=== PATIENT | female | born 1935 | race Caucasian/White ===

== ENCOUNTER 2019-06-15 10:52 | Inpatient (IN) | payer MEDICARE, OTHER ==
[2019-06-15] MEDS ORDERED: LORazepam 2 MG/ML SDV IVPUSH ONE (11:42)
[2019-06-15] MEDS: Sodium Chloride 0.9% 10 ML Syringe FLUSH PRN (11:48)
--- NOTE | 2019-06-15 12:14 | CT ---
[id number] CT/CT Head WO IV EXAM: CT Head WO IV CLINICAL DATA: FALL, STRUCK HEAD,HISTORY OF BRAIN METS. COMPARISON STUDY: MRI from March 2019. FINDINGS: No evidence of acute intracranial hemorrhage or extra-axial fluid collection. Abnormal signal throughout the white matter of both cerebral hemispheres. Findings are consistent with a combination of chronic small vessel disease and edema. Patient has history of numerous intracranial metastatic lesions. Of note, previously seen leftward midline shift at the septum pellucidum has resolved. There is partial effacement of the basal cisterns more prominent on the right. However no evidence of herniation at this time. MRI of the brain with contrast is recommended to evaluate the intracranial lesions as clinically warranted. IMPRESSION: No acute intracranial hemorrhage or other acute findings. Other findings are described above. Carlos Chadwick MD 06/15/19 1216 Thank you for allowing us to participate in the care of your patient.
[2019-06-15 12:26] LABS: CHLORIDE,CL 101 mmol/L (98-107); SODIUM,NA 142 mmol/L (136-145)
[2019-06-15 12:27] LABS: ANION GAP 15.6 mmol/L (10-20)
[2019-06-15] MEDS ORDERED: cefTRIAXone 1 GM Vial IVPUSH ONE (12:43)
--- NOTE | 2019-06-15 12:46 | CR ---
[id number] RAD/RAD Chest PA or AP 1V EXAM: RAD Chest PA or AP 1V INDICATION: FALL, STRUCK HEAD,HISTORY OF BRAIN METS. COMPARISON: CT from March 2019. DISCUSSION: Bibasal parenchymal opacities right greater than left. Finding is nonspecific. Differential diagnosis includes pneumonia, aspiration, or edema. If findings are clinically equivocal, consider contrast-enhanced chest CT examination for further evaluation. If there is contraindication to contrast material, noncontrast chest CT would also be of benefit. IMPRESSION: As above. Carlos Chadwick MD 06/15/19 [id number] Thank you for allowing us to participate in the care of your patient.
[2019-06-15] MEDS ORDERED: LORazepam 2 MG/ML SDV IVPUSH PRN (12:47)
[2019-06-15] MEDS ORDERED: levETIRAcetam 500 MG in Sodium Chloride 0.9% 100 ML IV ONE ×2 (12:56→14:14)
[2019-06-15] MEDS ORDERED: Dexamethasone 4 MG/ML 5 ML MDV IVPUSH ONE (13:01)
--- NOTE | 2019-06-15 13:03 | EDM.PDOC ---
ED HPI GENERAL MEDICAL PROBLEM - General Chief Complaint: General Stated Complaint: FALL Time Seen by Provider: 06/15/19 10:52 Source of Information: Reports: EMS, Family History Limitations: Reports: No Limitations - History of Present Illness INITIAL COMMENTS - FREE TEXT/NARRATIVE: Pt. presents to ER via EMS. 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 The son states that the patient has been confused, incontinent, and unable to perform her ADLs. She has also been experiencing "shaking" of her upper and lower extremities as well according to EMS. She has been increasingly weak. Son states that the patient fell today, striking the R parietal portion of her head on a piece of furniture. There was no LOC at that time. Son did not accompany the patient to ER so information gathering has been difficult. Pt. is non-verbal on arrival and unable to answer questions. Onset: Today Onset Date: 06/15/19 Location: Reports: Head, Generalized - Related Data Allergies Allergy/AdvReac Type Severity Reaction Status Date / Time Penicillins Allergy Other Verified 06/15/19 12:42 Home Meds: Home Meds Acetaminophen 325 mg PO Q4HR PRN 06/15/19 [History] Aspirin [Halfprin] 81 mg PO DAILY 06/15/19 [History] Famotidine 20 mg PO BEDTIME 06/15/19 [History] Memantine HCl [Namenda] 10 mg PO BID 06/15/19 [History] Simvastatin [Zocor] 10 mg PO BEDTIME 06/15/19 [History] amLODIPine [Norvasc] 2.5 mg PO DAILY 06/15/19 [History] dexAMETHasone [Dexamethasone] 4 mg PO BID 06/15/19 [History] levETIRAcetam [Keppra] 750 mg PO BID 06/15/19 [History] Past Medical History HEENT History: Reports: Cataract Cardiovascular History: Reports: High Cholesterol, Hypertension, Syncope Neurological History: Reports: Other (See Below) Other Neuro History: Brain edema Oncologic (Cancer) History: Reports: Basal Cell Carcinoma, Brain, Lung - Past Surgical History HEENT Surgical History: Reports: Cataract Surgery Female Surgical History: Reports: Hysterectomy Social & Family History - Tobacco Use Smoking Status *Q: Current Status Unknown ED ROS GENERAL - Review of Systems Review Of Systems: Unable To Obtain Reason Not Obtained: decreased LOC. See HPI ED EXAM, GENERAL - Physical Exam Exam: See Below Exam Limited By: No Limitations General Appearance: Alert, Obtunded Eye Exam: Bilateral Eye: EOMI, PERRL Nose: Normal Inspection, Normal Mucosa, No Blood Throat/Mouth: Normal Inspection, Normal Lips, Normal Teeth, Normal Gums, Normal Oropharynx, Normal Voice, No Airway Compromise Head: Other (small hematoma to R parietal area) Neck: Normal Inspection, Supple, Non-Tender, Full Range of Motion Respiratory/Chest: No Respiratory Distress, Lungs Clear, Normal Breath Sounds, No Accessory Muscle Use, Chest Non-Tender Cardiovascular: Normal Peripheral Pulses, Regular Rate, Rhythm, No Edema, No Gallop, No JVD, No Murmur, No Rub Peripheral Pulses: 4+: Radial (L) GI/Abdominal: Soft, Non-Tender, No Organomegaly, No Distention, No Abnormal Bruit, No Mass, Pelvis Stable (Female) Exam: Deferred Rectal (Female) Exam: Deferred Back Exam: Normal Inspection, Full Range of Motion Extremities: Normal Inspection, Normal Range of Motion, Non-Tender, No Pedal Edema, Normal Capillary Refill Neurological: Alert, Oriented, CN II-XII Intact, Normal Cognition, Normal Gait, Normal Reflexes, No Motor/Sensory Deficits Psychiatric: Normal Affect, Normal Mood Skin Exam: Warm, Dry, Intact, Normal Color, No Rash Lymphatic: No Adenopathy EKG INTERPRETATION Rhythm: NSR [place]: Normal P-Wave: Present QRS: Normal ST-T: Normal QT: Normal Course - Vital Signs Last Recorded V/S: Last Vital Signs Temp 37.7 C 06/15/19 13:12 Pulse 103 H 06/15/19 13:12 Resp 24 H 06/15/19 13:12 BP 171/79 H 06/15/19 13:12 Pulse Ox 90 L 06/15/19 13:12 - Orders/Labs/Meds Orders: Active Orders 24 hr Category Date Time Status EKG Documentation Completion [RC] STAT Care 06/15/19 11:18 Active CULTURE BLOOD [BC] Stat Lab 06/15/19 11:07 Received CULTURE BLOOD [BC] Stat Lab 06/15/19 11:52 Received Sodium Chloride 0.9% [Saline Flush] Med 06/15/19 11:17 Active 10 ml FLUSH ASDIRECTED PRN Blood Culture x2 Reflex Set [OM.PC] Stat Oth 06/15/19 11:18 Ordered Peripheral IV Insertion Adult [OM.PC] Routine Oth 06/15/19 11:18 Ordered Medication Orders Lorazepam (Ativan) 0.5 mg IVPUSH Q4H PRN PRN Reason: Anxiety Sodium Chloride (Saline Flush) 10 ml FLUSH ASDIRECTED PRN PRN Reason: Keep Vein Open Last Admin: 06/15/19 11:48 Dose: 10 ml Labs: Laboratory Tests 06/15/19 06/15/19 06/15/19 Range/Units 11:07 11:07 11:07 WBC 10.9 H (4.0-10.0) x10^3/uL RBC 3.76 L (4.00-5.50) x10^6/uL Hgb 12.4 (12.0-16.0) g/dL Hct 36.5 (33.0-47.0) % MCV 97.1 H (78.0-93.0) fL MCH 33.0 H (26.0-32.0) pg MCHC 34.0 (32.0-36.0) g/dL RDW Coeff of [place] 14.6 (10.0-15.0) % Plt Count 156 (130-400) x10^3/uL Add Manual Diff Yes Neutrophils % (Manual) 54 (50-80) % Band Neutrophils % 14 H (0-6) % Lymphocytes % (Manual) 23 L (25-50) % Monocytes % (Manual) 7 (2-11) % Eosinophils % (Manual) 2 (0-4) % Platelet Estimate Adequate PT 11.6 (10.0-12.8) SEC INR 1.0 L (2.0-3.5) Sodium 142 (136-145) mmol/L Potassium 3.6 (3.5-5.1) mmol/L Chloride 101 (98-107) mmol/L Carbon Dioxide 29 (21-32) mmol/L Anion Gap 15.6 (10-20) mmol/L BUN 22 H (7-18) mg/dL Creatinine 0.7 (0.55-1.02) mg/dL Est Cr Clr Drug Dosing TNP Estimated GFR (MDRD) > 60 Glucose 161 H (74-106) mg/dL Lactic Acid (0.4-2.0) mmol/L Calcium 8.8 (8.5-10.1) mg/dL Corrected Calcium 9.76 (8.5-10.1) mg/dL Phosphorus 2.9 (2.6-4.7) mg/dL Magnesium 2.0 (1.8-2.4) mg/dL Total Bilirubin 1.5 H (0.2-1.0) mg/dL AST 12 L (15-37) U/L ALT 11 L (14-59) U/L Alkaline Phosphatase 85 (46-116) U/L Troponin I < 0.017 (<=0.056) ng/mL C-Reactive Protein 2.5 H (<=0.9) mg/dL Total Protein 5.7 L (6.4-8.2) g/dL Albumin 2.8 L (3.4-5.0) g/dL Globulin 2.9 Albumin/Globulin Ratio 0.97 TSH, Ultra Sensitive 0.654 (0.358-3.74) uIU/mL Urine Color (YELLOW) Urine Appearance (CLEAR) Urine pH (5.0-8.0) Ur Specific [place] Urine Protein (NEGATIVE) mg/dL Urine Glucose (UA) (NEGATIVE) mg/dL Urine Ketones (NEGATIVE) mg/dL Urine Occult Blood (NEGATIVE) Urine Nitrite (NEGATIVE) Urine Bilirubin (NEGATIVE) Urine Urobilinogen (0.2) EU/dL Ur Leukocyte Esterase (NEGATIVE) Urine RBC (NOT SEEN) /HPF Urine WBC (NOT SEEN) /HPF Ur Squamous Epith Cells (NEGATIVE) /HPF Amorphous Sediment Urine Bacteria (NEGATIVE) /HPF Urine Mucus (NEGATIVE) /LPF 06/15/19 06/15/19 Range/Units 11:07 12:12 WBC (4.0-10.0) x10^3/uL RBC (4.00-5.50) x10^6/uL Hgb (12.0-16.0) g/dL Hct (33.0-47.0) % MCV (78.0-93.0) fL MCH (26.0-32.0) pg MCHC (32.0-36.0) g/dL RDW Coeff of [place] (10.0-15.0) % Plt Count (130-400) x10^3/uL Add Manual Diff Neutrophils % (Manual) (50-80) % Band Neutrophils % (0-6) % Lymphocytes % (Manual) (25-50) % Monocytes % (Manual) (2-11) % Eosinophils % (Manual) (0-4) % Platelet Estimate PT (10.0-12.8) SEC INR (2.0-3.5) Sodium (136-145) mmol/L Potassium (3.5-5.1) mmol/L Chloride (98-107) mmol/L Carbon Dioxide (21-32) mmol/L Anion Gap (10-20) mmol/L BUN (7-18) mg/dL Creatinine (0.55-1.02) mg/dL Est Cr Clr Drug Dosing Estimated GFR (MDRD) Glucose (74-106) mg/dL Lactic Acid 2.3 H* (0.4-2.0) mmol/L Calcium (8.5-10.1) mg/dL Corrected Calcium (8.5-10.1) mg/dL Phosphorus (2.6-4.7) mg/dL Magnesium (1.8-2.4) mg/dL Total Bilirubin (0.2-1.0) mg/dL AST (15-37) U/L ALT (14-59) U/L Alkaline Phosphatase (46-116) U/L Troponin I (<=0.056) ng/mL C-Reactive Protein (<=0.9) mg/dL Total Protein (6.4-8.2) g/dL Albumin (3.4-5.0) g/dL Globulin Albumin/Globulin Ratio TSH, Ultra Sensitive (0.358-3.74) uIU/mL Urine Color Yellow (YELLOW) Urine Appearance Slightly cloudy H (CLEAR) Urine pH 5.5 (5.0-8.0) Ur Specific [place] >=1.030 Urine Protein 30 H (NEGATIVE) mg/dL Urine Glucose (UA) 100 H (NEGATIVE) mg/dL Urine Ketones 40 H (NEGATIVE) mg/dL Urine Occult Blood Negative (NEGATIVE) Urine Nitrite Negative (NEGATIVE) Urine Bilirubin Small H (NEGATIVE) Urine Urobilinogen 1.0 (0.2) EU/dL Ur Leukocyte Esterase Negative (NEGATIVE) Urine RBC 0-5 (NOT SEEN) /HPF Urine WBC 0-5 (NOT SEEN) /HPF Ur Squamous Epith Cells Few H (NEGATIVE) /HPF Amorphous Sediment Occasional Urine Bacteria Rare (NEGATIVE) /HPF Urine Mucus Few H (NEGATIVE) /LPF Meds: Medications Generic Name Dose Route Start Last Admin Trade Name Judi PRN Reason Stop Dose Admin Lorazepam 0.5 mg 06/15/19 12:47 Ativan IVPUSH Q4H PRN Anxiety Sodium Chloride 10 ml 06/15/19 11:17 06/15/19 11:48 Saline Flush FLUSH 10 ml ASDIRECTED PRN Administration Keep Vein Open Discontinued Medications Generic Name Dose Route Start Last Admin Trade Name Judi PRN Reason Stop Dose Admin Ceftriaxone Sodium 1 gm 06/15/19 12:43 06/15/19 12:50 Rocephin IVPUSH 06/15/19 12:44 1 gm STAT ONE Administration Dexamethasone 12 mg 06/15/19 13:01 Dexamethasone IVPUSH 06/15/19 13:02 ONETIME ONE Levetiracetam 500 mg/ Sodium 105 mls @ 400 mls/hr 06/15/19 12:56 Chloride IV 06/15/19 13:10 ONETIME ONE Lorazepam 1 mg 06/15/19 11:42 06/15/19 11:47 Ativan IVPUSH 06/15/19 11:43 1 mg STAT ONE Administration - Radiology Interpretation Free Text/Narrative:: CT brain negative for acute pathology. Diffuse small vessel disease/mets noted. Unchanged. Departure - Departure Time of Disposition: 13:00 Disposition: Admitted As Inpatient 66 Clinical Impression: Seizure, Metastatic cancer to lung - Discharge Information Sepsis Event Note - Evaluation Sepsis Screening Result: No Definite Risk - Focused Exam Vital Signs: Vital Signs Temp Pulse Resp BP Pulse Ox 06/15/19 11:41 108 H 24 H 123/85 98 06/15/19 10:52 38.0 C 100 22 H 159/84 H 92 L Date Exam was Performed: 06/15/19 Time Exam was Performed: 13:16 - Problem List Review Problem List Initiated/Reviewed/Updated: Yes - My Orders Last 24 Hours: My Active Orders 06/15/19 11:07 CULTURE BLOOD [BC] Stat 06/15/19 11:17 Sodium Chloride 0.9% [Saline Flush] 10 ml FLUSH ASDIRECTED PRN 06/15/19 11:18 EKG Documentation Completion [RC] STAT Blood Culture x2 Reflex Set [OM.PC] Stat Peripheral IV Insertion Adult [OM.PC] Routine 06/15/19 11:52 CULTURE BLOOD [BC] Stat - Assessment/Plan Last 24 Hours: My Active Orders 06/15/19 11:07 CULTURE BLOOD [BC] Stat 06/15/19 11:17 Sodium Chloride 0.9% [Saline Flush] 10 ml FLUSH ASDIRECTED PRN 06/15/19 11:18 EKG Documentation Completion [RC] STAT Blood Culture x2 Reflex Set [OM.PC] Stat Peripheral IV Insertion Adult [OM.PC] Routine 06/15/19 11:52 CULTURE BLOOD [BC] Stat Plan: Pt. did have several grand mal seizures during her care in ER. She was given ativan 1mg IV. Pt. was hypoventilating and postictal. I spoke with her son about her condition. He was unaware of the severity of her disease and has decided to go with DNR/DNI. Her son will be coming to the ER later today. Her chest x-ray did show some possible infiltrate so the patient was given rocephin 1 gm IV.
[2019-06-15] MEDS: Sodium Chloride 0.9% 1,000 ML IV SCH (13:41)
[2019-06-15] MEDS ORDERED: Morphine 2 MG/ML Syringe IVPUSH PRN (13:55)
[2019-06-15] MEDS ORDERED: Dexamethasone 4 MG/ML SDV ONE (13:57)
[2019-06-15] MEDS ORDERED: Metoprolol Tartrate 5 MG/5 ML SDV IVPUSH PRN (14:21)
--- NOTE | 2019-06-15 14:56 | HP ---
CHIEF COMPLAINT: Fall and head injury. HISTORY OF PRESENT ILLNESS: This is an 83-year-old female with known stage IV metastatic non-small cell lung cancer diagnosed a couple of months ago, treated with palliative radiation, who has been more confused for the past couple of days. Son talked to her on the phone on Monday. She was doing fine. He arrived and she was getting mixed up. He never saw her take any pills. She was sleeping more. Today, she was wobbly and hallucinating and fell over and hit her head like on a cabinet. When she came to the emergency room, it was noted that she had a seizure [address] and then another one for 25 seconds. Eyes rolled back. She had sounds like tonoclonic activity. She did get 1 mg of Ativan and now she is not responsive. She was not complaining of any headaches. She is normally supposed to be on Keppra for preventing seizures. She has been on dexamethasone since she was hospitalized for the diagnosis back in March. That was weaned off according to her records may be around the . Actually, her hospital stay was on 04/22 to 04/27. They had not noted her coughing. They had not noted her having any fever or chills. Lung cancer is in the right lower lobe. X-ray done in the ER did show significant right lower lobe infiltrate and she was given 1 g of IV Rocephin. ALLERGIES: The patient otherwise has allergies to penicillin, hives. MEDICATIONS: Zocor 10 mg at bedtime; aspirin 81 mg daily; Norvasc 2.5 daily, recently decreased; Pepcid 20 mg at bedtime; Namenda, started back in April, supposed to be 2 tablets twice daily; Keppra 750 b.i.d.; and Tylenol as needed. PAST MEDICAL HISTORY: The patient per her has been quite healthy. She used to smoke. She has now this lung cancer with brain metastasis. She has had basal cell skin cancer, essential hypertension. She has had some emphysema. Hyperlipidemia. PAST SURGICAL HISTORY: The patient has had hysterectomy, cataracts, appendectomy. SOCIAL HISTORY: She lives at home with her . She has 1 son who lives in [facility] who did come to take care of them. 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 She quit smoking about 3 years ago. FAMILY HISTORY: The patient's parents are . Father had a heart attack. REVIEW OF SYSTEMS: Unobtainable from the patient. PHYSICAL EXAMINATION: Vital Signs: At the time of her admission does show her to have a weight of 52.9 kg, temperature 99.9, pulse 103, blood pressure 171/79, respiratory rate 24, and O2 of 90% on 10 L non-rebreather, but prior to her seizure and Ativan, she was saturating okay. General: She is in no acute distress. She is resting comfortably in her bed. She is using some accessory muscle use for her breathing, but it has improved with sitting up. She is moving all extremities spontaneously. She is not responsive to verbal or painful stimuli. HEENT: Her pupils are equal, round, and reactive to light. Heart: Regular rate and rhythm. S1 and S2 without murmur. Lungs: Lung sounds are decreased with rhonchi especially over that right base. Poor respiratory effort noted. Abdomen: Nondistended, nontender. Extremities: Warm, dry. No edema. Mental Status: Unobtainable given her current status. IMAGING DATA: Head CT was performed and did show the patient to have no acute bleeds. She did have no leftward midline shift like she did previously when she was diagnosed with the brain mets, but does have numerous intracranial metastatic lesions. Her chest x-ray showed her to have right greater than left infiltrate, bibasilar parenchymal opacities. She does have a known history of lung cancer on that right side. LABORATORY DATA: Otherwise, her lab work did show a white count 10.9, hemoglobin 12.4, platelets 156. INR 1. Sodium 142, potassium 3.6, chloride 101, bicarb 29, BUN 22, creatinine 0.7, glucose 161, lactic 2.3, calcium normal. Bilirubin 1.5, AST 12, ALT 11, alkaline phosphatase 85. Troponin negative. CRP 2.5, albumin 2.8. TSH normal range. UA; 0 to 5 rbc's and wbc's. Blood cultures and sputum cultures pending. ASSESSMENT AND PLAN: 1. Fall and head injury, likely due to her brain metastasis, possibly due to being off the dexamethasone. 2. Seizures. This sounds like she has not been using her Keppra. 3. Stage IV non-small cell lung cancer, metastatic to the brain. She has completed palliative radiation. They are talking about possible chemo. However, right now, she is not a candidate for those treatments given her performance status. 4. Right lower lobe infiltrate. She did not have any pneumonia symptoms prior to this, possibly an aspiration chemical pneumonitis. 5. Essential hypertension with elevated blood pressures, unable to take her oral medications. 6. History of cognitive impairment. She has been on Namenda. She is unable to take any medications currently. PLAN: The patient is admitted for acute cares. We will give her some IV fluids. I will load her with IV Keppra 1 g. I will give her, her oral dose 750 b.i.d. We do have Ativan available if needed for seizures. Discussed with Oncology to reload her with dexamethasone. I will give her 12 mg IV. If she is able to eat and drink tomorrow we will likely put her on 2 mg b.i.d. I also have morphine ordered if needed for dyspnea and respiratory distress. This was discussed with her son. She is a code level 3, did not want CPR or intubation. At this point, her respiratory status is very tenuous and she may not survive her illness. This was discussed with her son and present. We will continue with a non-rebreather mask. I will continue with IV Rocephin. I will repeat lab work tomorrow. Again, we will use morphine if needed for comfort and her son was agreeable with this. PALLIATIVE CARE STATUS: I placed her code level 5. MKA: 06/15/2019 14:27:16 MODL: 06/15/2019 14:49:47 /[id number] MTDD
[2019-06-16] MEDS: Acetaminophen 650 MG Supp RECTAL PRN (01:43)
[2019-06-16] MEDS: Sodium Chloride 0.9% 1,000 ML IV SCH ×3 (05:02→19:57)
[2019-06-16 08:25] LABS: ANION GAP 11.2 mmol/L (10-20); CHLORIDE,CL 106 mmol/L (98-107); SODIUM,NA 144 mmol/L (136-145)
[2019-06-16] MEDS ORDERED: Ertapenem 1 GM Vial IVPUSH SCH (09:45)
[2019-06-16] MEDS ORDERED: cefTRIAXone 1 GM Vial IVPUSH SCH (10:00)
[2019-06-16] MEDS ORDERED: Potassium Chloride 10 MEQ in Premix Bag 1 BAG IV ONE ×2 (10:03→12:00)
[2019-06-16] MEDS: Dexamethasone 4 MG/ML SDV IVPUSH SCH ×2 (10:30→19:51)
[2019-06-16] MEDS: Ertapenem 1 GM in Sodium Chloride 0.9% 100 ML IV SCH (10:32)
--- NOTE | 2019-06-16 11:06 | CR ---
[id number] RAD/RAD Chest PA or AP 1V EXAM: RAD Chest PA or AP 1V INDICATION: FEVER. COMPARISON: Yesterday. DISCUSSION: Heart is normal in size. Possible mild central vascular congestion. Bibasal parenchymal opacities and small effusions. Findings have increased since yesterday. Differential diagnosis includes fluid retention with pulmonary edema versus pneumonia and/or atelectasis. Correlate for signs of infection. IMPRESSION: Progression of small effusions and bibasal parenchymal opacities compared to yesterday. Carlos Chadwick MD 06/16/19 [id number] Thank you for allowing us to participate in the care of your patient.
--- NOTE | 2019-06-16 11:08 | PN ---
Progress Note for MARK Panda SHORT Date: 06/16/2019 Room #: .203 SUBJECTIVE: This is hospital day #2 for an 83-year-old with metastatic lung cancer to the brain who had a fall hitting her head yesterday and then had 2 seizures at the hospital. She has been unresponsive since getting a 1 mg of Ativan for her seizure. She had not been hypoxic, but after the seizure, she was quite hypoxic and in fact was requiring the non-rebreather mask to maintain saturations over 90% last evening. Now, she is up to 94% on 6 L. She does not appear to be in any pain. She has not had any respiratory hunger or distress. She has not required any morphine or Ativan overnight. She was loaded with 12 mg of dexamethasone and IV Keppra as it appeared she was not taking her Keppra at home. She has had fevers overnight, T-max 100.6 at 1:45 a.m. She is still up to 100.5 this morning. She has been getting IV fluids. She has not been eating anything. She did get a dose of Tylenol during the night. OBJECTIVE: VITAL SIGNS: Temperature 100.5, pulse 93, blood pressure 115/53, respiratory rate 18, and O2 of 93% on 6 L. General: She is in no acute distress. She is not responsive to pain or verbal stimuli. HEART: Her heart is a regular rate and rhythm without murmur. LUNGS: Lung sounds are decreased with rhonchi throughout. Poor respiratory effort. NEUROLOGIC: Yesterday, she was moving extremities spontaneously. Now, she is just sleeping and resting. I cannot get her to comply with any neurologic exam. EXTREMITIES: Warm and dry. She has trace edema to her legs. MENTAL STATUS: Unable to assess due to her unresponsiveness. LABORATORY DATA: Laboratory work shows her white count improved to 9.2, hemoglobin down slightly to 11.3, and platelets 153. Sodium 144, potassium 3.2, chloride 106, bicarbonate 30, BUN 21, creatinine 0.6, calcium 8.5, bilirubin down to 1.2, ALT and AST actually low, and albumin 2.2. ASSESSMENT: 1. Fall with head injury. No new injury on the CT but known metastatic lung cancer. 2. Metastatic non-small cell lung cancer to the brain. She has completed radiation. She has not been on any chemotherapy. 3. Seizures, likely due to brain metastasis. 4. Hypokalemia. 5. Likely aspiration pneumonia, failing intravenous Rocephin. 6. Essential hypertension. Blood pressure is controlled. 7. Moderate malnutrition. 8. History of cognitive impairment. PLAN: At this point, the patient will continue acute cares. I will replace her potassium IV. I will continue IV fluids. We will repeat her chest x-ray this morning. Due to her penicillin allergy, I am switching her over to ertapenem. I would also avoid the Flagyl given her history of seizures. Discussed with the son. We have not seen an improvement yet and likely she may not recover from this illness. He has many questions and concerns especially because his father is also very ill and frail at home. Therefore, we will get Social Work involved to hopefully visit with him sometime tomorrow. Otherwise, Dr. Jj will be updated on the patient plan of care. Given that she is likely moving towards the end of her life, we have not ordered her any Lovenox. She also does have a mild anemia. We will repeat blood work tomorrow. Did explain to the family that we will see how she does over the next 24 hours and make further decisions after that. NOLAA: 06/16/2019 10:14:01 MODL: 06/16/2019 11:02:32 /[id number] BERNICE
[2019-06-17] MEDS: Sodium Chloride 0.9% 1,000 ML IV SCH (04:42)
[2019-06-17] MEDS: Acetaminophen 650 MG Supp RECTAL PRN ×4 (05:23→22:10)
[2019-06-17 07:48] LABS: ANION GAP 15.2 mmol/L (10-20); CHLORIDE,CL 109 mmol/L (98-107); SODIUM,NA 148 mmol/L (136-145)
[2019-06-17] MEDS: Dexamethasone 4 MG/ML SDV IVPUSH SCH ×2 (07:49→20:28)
[2019-06-17] MEDS ORDERED: Sodium Chloride 0.9% 1,000 ML IV SCH (08:21)
[2019-06-17] MEDS ORDERED: NS + KCl 20mEq/L 1,000 ML IV SCH (08:30)
[2019-06-17] MEDS ORDERED: Furosemide 20 MG/2 ML VIAL IV ONE (08:38)
[2019-06-17] MEDS: Metoprolol Tartrate 5 MG/5 ML SDV IVPUSH SCH ×3 (09:02→20:27)
--- NOTE | 2019-06-17 09:03 | PN ---
Progress Note for MARK Panda SHORT Date: 06/17/2019 Room #: VM.203 SUBJECTIVE: Today is the patient's third hospital day after being admitted for seizure, head injury,unresponsive episode. She was found to have an aspiration pneumonia as well as having some CHF. She had not been taking her antiseizure medicine for prophylactic treatments for her metastatic brain cancer, and she since being admitted, has not recovered consciousness. Her has confusion and does not have a great understanding of her current health status. Her son who had been in the hospital over the weekend and staying with dad states that he was not aware that she has had metastatic cancer. A More catheter has been placed for the patient as well. The patient has been receiving IV p.r.n. metoprolol for elevated blood pressure. She was switched to ertapenem yesterday because of aspiration pneumonias. PHYSICAL EXAMINATION: Vital Signs: Objectively, her temperature max was 38.3, her pulse is 120s, blood pressure is 149/81, saturations are 93. She is on 10 L non-rebreather. Skin: [place], moist, and dry. She does have some audible gurgles noted. Heart: Tachycardic. Abdomen: Soft. Neurologic: The patient is not responsive to pain. LABORATORY DATA: Her labs this morning shows that her white blood cell count has gone up to 12.5, hemoglobin 11.5 with 190 platelets. Sodium is 148, potassium 3.2, creatinine 0.7, GFR greater than 60, glucose 149. Cultures so far have not grown anything. IMPRESSION: 1. Sepsis due to aspiration pneumonia. 2. Fall with closed head injury. 3. Seizures due to metastatic brain cancer as well as noncompliance with medication. 4. 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 5. Chronic obstructive pulmonary disease. 6. Hypertension. 7. hypokalemia. PLAN: I did talk with her son, Le, at [phone]. Right now, we will switch her IV to include some potassium, but we will slow down rate. We will continue her on the same antibiotics. Her son wishes to proceed with same level of care right now being made aware of that she probably most likely would not regain consciousness and may need to be switched over to palliative care. We will have social media marketing manager work with family right now as her prognosis is grim to terminal. GM06/17/2019 08:37:34 MODL: 06/17/2019 08:56:50 /[id number] MTDD
[2019-06-17] MEDS: Ertapenem 1 GM in Sodium Chloride 0.9% 100 ML IV SCH (10:35)
[2019-06-17] MEDS: Sodium Chloride 0.9% 10 ML Syringe FLUSH PRN (20:38)
[2019-06-17] MEDS ORDERED: Lactated Ringers 1,000 ML IV SCH (23:45)
[2019-06-18] MEDS: Metoprolol Tartrate 5 MG/5 ML SDV IVPUSH SCH ×2 (02:28→07:50)
[2019-06-18] MEDS: Sodium Chloride 0.9% 10 ML Syringe FLUSH PRN ×5 (02:29→13:38)
[2019-06-18] MEDS: Acetaminophen 650 MG Supp RECTAL PRN (05:53)
[2019-06-18 07:07] LABS: CHLORIDE,CL 116 mmol/L (98-107); SODIUM,NA 155 mmol/L (136-145)
[2019-06-18] MEDS: Dexamethasone 4 MG/ML SDV IVPUSH SCH (07:51)
--- NOTE | 2019-06-18 09:06 | PN ---
Progress Note for MARK Panda SHORT Date: 06/18/2019 Room #: VM.203 SUBJECTIVE: The patient has never regained consciousness since admission. The patient has not had further seizure disorder since lying here after being loaded with dexamethasone, levetiracetam. She did have her son visit yesterday as well as her and they are aware that her prognosis is grim. Throughout the night, she did have a temperature that went up to 39.3. OBJECTIVE: Vital Signs: Her temperature this morning is 38.1. Her pulse is 115, blood pressure is 153/75, sats are 90% on 10 L. General: The patient is lying in bed. She is unresponsive to pain, to sternal rub. HEENT: Her pupils are dilated and unresponsive to light. Heart: Regular rate and rhythm. Lungs: Diminished breath sounds. Abdomen: Soft. Urine is dark john in color. LABORATORY DATA: Today showed her white blood cell count is up to 13.6, hemoglobin 10.5, platelets 202 with 76 segs, 1 band, 20 lymphocytes. Her sodium was 155, potassium is 4.0, creatinine is 0.6, GFR greater than 60. Her glucose 204. Her lactic acid is 1.2, calcium 8.6. CRP is up to 84.6 from 2.5 on admission. IMPRESSION: 1. Metastatic lung cancer to brain. 2. 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 3. Aspiration pneumonia. 4. Head contusion. 5. Chronic obstructive pulmonary disease. 6. Hypertension. 7. Hypernatremia. 8. Coma PLAN: I did visit with her son, [place] again at 8:20 this morning at [phone] and do feel that his mother is in a terminal state and that it would be appropriate to just give her palliative care services right now, which will be scheduled morphine, give her lorazepam for anxiety, restlessness. We will stop her IV fluids, stop her IV antibiotics. We will continue oxygen for comfort. Continue her More catheter for comfort cares. I do expect her to pass away within the next 24 to 48 hours. We will leave her currently on her current acute care status since it is felt that her time to pass away is very short. [employer] have been visiting with the son to arrange cares for father who needs help at home. Son appreciated call. We will sign over care to on-call provider at noon today as well as tomorrow due to holiday happening. May need to add glycopyrrolate as well if she starts having more secretions. GM06/18/2019 08:35:15 MODL: 06/18/2019 08:52:40 /[id number] MTDD
[2019-06-18] MEDS: Morphine 2 MG/ML Syringe IVPUSH SCH ×3 (09:30→13:37)
[2019-06-18] MEDS ORDERED: Atropine 1% Ophth Soln 5 ML BOTTLE SL PRN (11:55)
--- NOTE | 2019-06-20 11:42 | DISCH ---
PRIMARY DIAGNOSES: 1. Stage IV metastatic [id number] lung cancer. 2. Seizure secondary to brain metastasis. 3. Noncompliant with medications due to confusion. 4. Contusion to head that occurred on 06/15/2019. 5. Aspiration pneumonia. 6. Chronic obstructive pulmonary disease. 7. Hypertension. SUMMARY OF ADMIT HISTORY AND PHYSICAL: The patient is an 83-year-old female who presented to the emergency room by ambulance. She had fallen at home and was noted to be increasingly confused. Son had called into the emergency room with report, but did not accompany the patient to the ER. She had been "shaking" in her upper extremities at home. The patient was noted to have brain mets from metastatic stage IV [id number] lung cancer and had just undergone palliative radiation and was going to start chemotherapy. She had been on some dexamethasone as well as Keppra, but had not been taking her pills out of her bottle per her son. When she arrived at the emergency room, she was nonverbal, unable to answer questions. While the patient was in the emergency room, she had a few more witnessed seizures. She had undergone a head CT which showed no acute injuries to the brain such as bleeds or fractures. She was seen by ANAHI Higuera. The patient was noted to be hypoventilating and concern for aspiration also was present. LABORATORY DATA: Her lab work on admission showed her white blood cell count 10.9, hemoglobin 12.4, platelets 156 with 54 segs and 14 bands. INR 1.0. Sodium 142, potassium 3.6, creatinine 0.7, GFR greater than 60, glucose 161, lactic acid 2.3. LFTs were normal. Alkaline phosphatase 85. Troponin less than 0.017. CRP 2.5. TSH 0.654. SUMMARY OF HOSPITAL COURSE: The patient was given Rocephin because of concern for aspiration pneumonia, IV fluids. Per talk with son, she was placed do not resuscitate/do not intubate. To note while hospitalized, the patient's blood pressure did become elevated and she was tachycardic. She received some IV metoprolol as well as IV Lasix. To note, she never regained consciousness and Dr. Funmilayo Davis had admitted the patient. She had reviewed case with her [place] oncologist and they opted just to keep her here. As of 06/17/2019, she still had not regained consciousness and so her lab work had been repeated. It showed that her temperature had started to spike. Her white blood cell count was up to 12.5, hemoglobin 11.5, platelets 190 with 54 segs, 19 bands. Sodium was 148, potassium 3.2, creatinine 0.7, GFR greater than 60. She had been given IV dexamethasone. Magnesium was normal at 2.1. By 06/18/2019, she still had not regained consciousness, so it was opted to place her on comfort cares. At that time, her sodium had gone up to 155, potassium was 4.0. CRP had gone up to 84.6. The patient was placed on morphine and atropine for comfort cares. She was receiving oxygen by non-rebreather. The patient had quietly at 1400. I had been notified by nursing staff. To note, due to the holiday corner, I was not initially contacted, but I did contact He Pricne on 06/20/2019 and did review case, contacted him at 9:50 and he felt okay that no further investigation would be needed. To note, [employer] had visited with family as son was present and needed documentation for his job to be away. To note, her did have some social needs that needed to be addressed as well. GM06/20/2019 09:59:47 MODL: 06/20/2019 11:31:06 /[id number]
== END 2019-06-18 14:00 | disposition expired | DRG 100 ==
LOC: VM.ED 10:52 → VM.MS 12:23
PROVIDERS: ADMIT Internal Medicine; ATTEND Family Medicine
DX: G40.409 Other generalized epilepsy and epileptic syndromes, not intractable, without status epilepticus (principal); G40.909 Epilepsy, unspecified, not intractable, without status epilepticus; J69.0 Pneumonitis due to inhalation of food and vomit; R40.20 Unspecified coma; R53.1 Weakness; C79.31 Secondary malignant neoplasm of brain; C34.31 Malignant neoplasm of lower lobe, right bronchus or lung; E44.0 Moderate protein-calorie malnutrition; I10 Essential (primary) hypertension; E87.1 Hypo-osmolality and hyponatremia; Z51.5 Encounter for palliative care; Z79.899 Other long term (current) drug therapy; Z66 Do not resuscitate; E87.6 Hypokalemia; E78.00 Pure hypercholesterolemia, unspecified; I11.0 Hypertensive heart disease with heart failure; I50.9 Heart failure, unspecified; J43.9 Emphysema, unspecified; D64.9 Anemia, unspecified; R09.02 Hypoxemia; G31.84 Mild cognitive impairment of uncertain or unknown etiology; S00.93XA Contusion of unspecified part of head, initial encounter; Z98.42 Cataract extraction status, left eye; Z98.41 Cataract extraction status, right eye; Z91.14 Patient's other noncompliance with medication regimen; Z88.0 Allergy status to penicillin; Z68.21 Body mass index [BMI] 21.0-21.9, adult; Z79.82 Long term (current) use of aspirin; Z79.890 Hormone replacement therapy; Z90.710 Acquired absence of both cervix and uterus; W19.XXXA Unspecified fall, initial encounter; Y92.009 Unspecified place in unspecified non-institutional (private) residence as the place of occurrence of the external cause; Z90.49 Acquired absence of other specified parts of digestive tract; Z87.891 Personal history of nicotine dependence; Z85.828 Personal history of other malignant neoplasm of skin; Z92.3 Personal history of irradiation
CPT/HCPCS: 36415; 70450; 71045; 80053; 81001; 83605; 83735; 84100; 84443; 84484; 85025; 85610; 86140; 87040 ×2; 93005; J2060; 51702; 80048; 85007; 85027; 93010; 94760; 96374; 99284-GF; 99285-25; A9270-GY; J0696; J1100; J1335; J1940; J1953; J2270; J3480; J3490; J7030; J7050; J7120